=== PATIENT | female | born 1965 | race Caucasian/White ===

== ENCOUNTER 2017-03-27 08:00 | Outpatient (CLI) | payer OTHER ==
[2017-03-27 08:20] LABS: BASOPHILS % (AUTO) 1.2 %; EOSINOPHILS # (AUTO) 0.1 10^3/uL (0.0-0.7); EOSINOPHILS % (AUTO) 1.7 %; HCT - HEMATOCRIT 36.1 % (37.0-47.0); HGB - HEMOGLOBIN 12.4 g/dL (12.0-16.0); LYMPHOCYTES % (AUTO) 25.5 %; MEAN CORPUSCULAR HEMOGLOBIN 29.8 pg (27.0-31.0); MEAN CORPUSCULAR HGB CONC 34.5 g/dL (32.0-36.0); MEAN CORPUSCULAR VOLUME 86.4 fL (81.0-99.0); MEAN PLATELET VOLUME 7.6 fL (7.9-10.8); MONOCYTES # (AUTO) 0.4 10^3/uL (0.0-1.0); MONOCYTES % (AUTO) 9.3 %; NEUTROPHILS # (AUTO) 2.6 10^3/uL (1.5-6.6); NEUTROPHILS % (AUTO) 62.3 %; RED BLOOD COUNT 4.18 10^6/uL (4.20-5.40); RED CELL DISTRIBUTION WIDTH 12.3 % (12.0-15.0); UNCORRECTED WHITE BLOOD COUNT 4.1 x10^3/uL; WHITE BLOOD COUNT 4.1 x10^3/uL (4.8-10.8)
[2017-03-27 08:37] LABS: CALCIUM 9.6 mg/dL (8.5-10.3); CREATININE 1.1 mg/dL (0.4-1.0)
== END 2017-03-27 08:01 | disposition home or self-care (01) ==
LOC: LAB 08:00
PROVIDERS: ATTEND Nurse Practitioner Adult Health
DX: Z94.1 Heart transplant status (principal)
CPT/HCPCS: 36415; 80048; 80197; 85025

== ENCOUNTER 2018-06-18 08:41 | Emergency (ER) | payer BC, OTHER ==
--- NOTE | 2018-06-18 08:58 | ED Physician Documentation ---
PD HPI ABD PAIN - Stated complaint Stated Complaint: ABD PX - Chief complaint Chief Complaint: Abd Pain - History obtained from History obtained from: Patient - History of Present Illness Timing - onset: How many days ago Timing - duration: Days Timing - details: Abrupt onset, Still present Quality: Sharp, Pain (week of intermittent left anterolateral chest pain, worse with moving andc) Location: Other (left anterolat chestwall tenderness to palpate) Improved by: Position. No: Eating Worsened by: Position, Palpation. No: Eating, Breathing Associated symptoms: No: Fever, Nausea, Vomiting, Melena, Hematochezia Similar symptoms before: Diagnosis (had had some chest discomfort few years ago after transplant and wires caused some irritation. Was going to get them removed but problem improved and was without pain for years.) Review of Systems Constitutional: denies: Fever, Chills Eyes: reports: Photophobia Ears: denies: Drainage/discharge, Foreign body Nose: denies: Rhinorrhea / runny nose, Congestion Throat: denies: Oral lesions / sores, Sore throat Respiratory: denies: Cough GI: denies: Abdominal Swelling PD PAST MEDICAL HISTORY - Past Medical History Cardiovascular: None, Other (heart transplant years ago. ) Respiratory: None Neuro: None - Past Surgical History Cardiovascular: Other (heart transplant) - Present Medications Home Medications: Ambulatory Orders Medication Instructions Recorded Confirmed Dexamethasone [Decadron] 4 mg PO DAILY #5 tablet 06/18/18 HYDROcod/ACETAM 5/325 [[place] 5/325] 1 tab PO Q6H PRN #20 tablet 06/18/18 Mycophenolate Mofetil [Cellcept] 250 mg BID 06/18/18 06/18/18 Pravastatin [Pravachol] 40 mg pe 06/18/18 Sulfamethoxazole/Trimethoprim 1 tab 06/18/18 [Bactrim 400-80 mg Tablet] Tacrolimus [Prograf] 3 mg pe 06/18/18 diazePAM [Diazepam] 5 mg PO BID PRN #20 tablet 06/18/18 - Allergies Allergies/Adverse Reactions: Allergies Allergy/AdvReac Type Severity Reaction Status Date / Time Penicillins Allergy Hives Verified 06/18/18 08:57 PD ED PE NORMAL - Vitals Vital signs reviewed: Yes - General General: Alert and oriented X 3, Well developed/nourished, Other (mild anxiousness. she has some tenderness left anterolat) - HEENT HEENT: Pharynx benign - Neck Neck: Supple, no meningeal sign, No adenopathy, No JVD - Cardiac Cardiac: RRR, No murmur - Respiratory Respiratory: Clear bilaterally - Abdomen Abdomen: Soft, Non tender - Back Back: No CVA TTP - Derm Derm: Normal color, Warm and dry, No rash - Extremities Extremities: No tenderness to palpate, Normal ROM s pain, No edema, No calf tenderness / cord - Neuro Neuro: Alert and oriented X 3, No motor deficit, Normal speech Results - Vitals Vitals: Vital Signs - 24 hr 06/18/18 06/18/18 08:54 12:07 Temperature 36.8 C Heart Rate 118 H 104 H Respiratory 20 18 Rate Blood Pressure 128/91 H 134/94 H O2 Saturation 100 99 Oxygen O2 Source Room air - Labs Labs: Laboratory Tests 06/18/18 06/18/18 06/18/18 10:00 10:00 10:00 WBC 7.3 RBC 4.92 Hgb 14.6 Hct 42.3 MCV 85.9 MCH 29.6 MCHC 34.5 RDW 13.4 Plt Count 248 MPV 8.1 Neut # (Auto) 6.0 Lymph # (Auto) 0.8 L [place] # (Auto) 0.3 Eos # (Auto) 0.0 Baso # (Auto) 0.0 Absolute Nucleated RBC 0.00 Nucleated RBC % 0.0 ESR 1 Sodium 133 L Potassium 4.0 Chloride 98 L Carbon Dioxide 24 Anion Gap 11.0 BUN 23 H Creatinine 1.1 H Estimated GFR (MDRD) 52 L Glucose 109 H Calcium 9.5 Total Bilirubin 0.7 AST 23 ALT 17 Alkaline Phosphatase 47 Total Protein 7.7 Albumin 4.8 Globulin 2.9 Albumin/Globulin Ratio 1.7 Lipase 33 - Rads (name of study) chest cT Radiology: Prelim report reviewed (prior hardware seen. No acute process. ) PD MEDICAL DECISION MAKING - ED course Complexity details: considered differential, d/w patient - Sepsis Event Vital Signs: Vital Signs - 24 hr 06/18/18 06/18/18 08:54 12:07 Temperature 36.8 C Heart Rate 118 H 104 H Respiratory 20 18 Rate Blood Pressure 128/91 H 134/94 H O2 Saturation 100 99 Oxygen O2 Source Room air Departure - Departure Disposition: 01 Home, Self Care Clinical Impression: Acute myofascial pain, Acute chest wall pain Condition: Stable Record reviewed to determine appropriate education?: Yes Instructions: ED Chest Pain NonCardiac Prescriptions: Dexamethasone [Decadron] 4 mg PO DAILY #5 tablet diazePAM [Diazepam] 5 mg PO BID PRN #20 tablet PRN Reason: Spasms HYDROcod/ACETAM 5/325 [[place] 5/325] 1 tab PO Q6H PRN #20 tablet PRN Reason: Pain Comments: There is no signs of serious internal process is causing the pain. Presume the wire is rubbing on some sore spot in creating an irritation. Follow-up with your transplant team regarding wire removal. Meanwhile we will try some anti- inflammatories of Decadron steroid daily for 5 days. Also muscle relaxant diazepam may help for any spasming. Add hydrocodone if needed for pains. Return if worsening. Discharge Date/Time: 06/18/18 13:02
[2018-06-18] MEDS ORDERED: MORPHINE 10 MG/ML VIAL IVP STA (09:24)
[2018-06-18] MEDS ORDERED: SODIUM CHLORIDE 0.9% 1,000 ML IV ONE (09:24)
[2018-06-18] MEDS ORDERED: ONDANSETRON 4 MG/2 ML VIAL IVP STA (09:25)
[2018-06-18] MEDS ORDERED: IOPAMIDOL-300 100 ML VIAL ONE (09:39)
[2018-06-18 10:06] LABS: BASOPHILS % (AUTO) 0.6 %; EOSINOPHILS % (AUTO) 0.6 %; HGB - HEMOGLOBIN 14.6 g/dL (12.0-16.0); LYMPHOCYTES # (AUTO) 0.8 10^3/uL (1.5-3.5); LYMPHOCYTES % (AUTO) 11.6 %; MEAN CORPUSCULAR HEMOGLOBIN 29.6 pg (27.0-31.0); MEAN CORPUSCULAR HGB CONC 34.5 g/dL (32.0-36.0); MEAN CORPUSCULAR VOLUME 85.9 fL (81.0-99.0); MEAN PLATELET VOLUME 8.1 fL (7.9-10.8); MONOCYTES # (AUTO) 0.3 10^3/uL (0.0-1.0); MONOCYTES % (AUTO) 4.2 %; PLT - PLATELET COUNT 248 10^3/uL (130-450); RED BLOOD COUNT 4.92 10^6/uL (4.20-5.40); RED CELL DISTRIBUTION WIDTH 13.4 % (12.0-15.0); WHITE BLOOD COUNT 7.3 x10^3/uL (4.8-10.8)
[2018-06-18 10:19] LABS: ALBUMIN 4.8 g/dL (3.2-5.5); ALBUMIN/GLOBULIN RATIO 1.7 (1.0-2.2); BILIRUBIN,TOTAL 0.7 mg/dL (0.2-1.0); CALCIUM 9.5 mg/dL (8.5-10.3); CREATININE 1.1 mg/dL (0.4-1.0); TOTAL PROTEIN 7.7 g/dL (6.7-8.2)
--- NOTE | 2018-06-18 11:30 | CT Report ---
Reason: left lower chest/upper abd pain, sharp Procedure Date: 06/18/2018 Accession Number: [id number] / [id number] Procedure: CT - Chest W/ CPT Code: FULL RESULT: EXAM: CT CHEST EXAM DATE: 06/18/2018 10:53 AM. CLINICAL HISTORY: Left lower chest/upper abd pain, sharp. COMPARISONS: None. TECHNIQUE: Routine helical CT imaging was performed through the chest. IV contrast: None. Reconstructions: Coronal and sagittal. In accordance with CT protocol optimization, one or more of the following dose reduction techniques were utilized for this exam: automated exposure control, adjustment of mA and/or KV based on patient size, or use of iterative reconstructive technique. FINDINGS: Sternotomy and cardiac hardware is noted. Lungs/Pleura: No nodules, bronchial thickening, consolidation, or edema. Pulmonary vasculature is normal. No pericardial or pleural effusion. No pneumothorax. Mediastinum: No adenopathy or masses. Bones: No bone lesions. Visualized Abdomen: Unremarkable. IMPRESSION: There are no CT findings to suggest a cause of the patient's symptoms RADIA
--- NOTE | 2018-06-18 11:45 | CT Report ---
Reason: left chest/abd pain Procedure Date: 06/18/2018 Accession Number: [id number] / [id number] Procedure: CT - Abdomen W/ CPT Code: FULL RESULT: EXAM: CT ABDOMEN EXAM DATE: 06/18/2018 10:53 AM. CLINICAL HISTORY: Left chest/abd pain. COMPARISON: None. TECHNIQUE: Routine helical CT imaging was performed through the abdomen. IV contrast: 100 cc Isovue-300 Enteric contrast: No Reconstruction: Coronal and sagittal. In accordance with CT protocol optimization, one or more of the following dose reduction techniques were utilized for this exam: automated exposure control, adjustment of mA and/or KV based on patient size, or use of iterative reconstructive technique. FINDINGS: Lung Bases: Unremarkable. Liver: Normal contour. No masses. There is a subcentimeter low attenuating focus in the right lobe, too small to characterize. Gallbladder/Bile Ducts: Unremarkable. Spleen: Normal. Pancreas: Normal. Adrenal Glands: Normal. Kidneys: No masses or hydronephrosis. Peritoneal Cavity/Bowel: Normal. No free fluid, free air or adenopathy. No masses or acute inflammatory process. Vasculature: No aneurysms or other significant abnormality. Bones: No bone lesions. IMPRESSION: There are no CT findings to suggest a cause of the patient's symptoms RADIA
[2018-06-18 12:08] VITALS: BP 134/94
[2018-06-18] MEDS ORDERED: HYDROcod/ACETAM 5/325 MG TABLET PO STA (12:48)
[2018-06-18] MEDS ORDERED: DEXAMETHASONE 10 MG/ML VIAL PO STA (12:48)
[2018-06-18] MEDS ORDERED: IOPAMIDOL-300 100 ML VIAL IVP ONE (13:00)
== END 2018-06-18 13:02 | disposition home or self-care (01) ==
LOC: ED 08:41
DX: M79.1 Myalgia (principal); R07.89 Other chest pain; Z94.1 Heart transplant status; Z79.899 Other long term (current) drug therapy
CPT/HCPCS: 36415; 71260; 74160; 80053; 83690; 85025; 85651; 96361; 96374; 99283; A9270; Q9967